=== PATIENT | male | born 1965 | race African-American/Black ===

== ENCOUNTER 2018-01-07 15:48 | Emergency (ER) | payer OTHER, BC ==
[2018-01-07] MEDS: ONDANSETRON 4 MG INJ IV (18:54)
[2018-01-07] MEDS: SOD CHLORIDE 0.9% 1,000 ML IV (18:55)
[2018-01-07] MEDS: morphine 4 MG/ML VIAL IV (18:55)
[2018-01-07 19:14] LABS: ADD MAN DIFF? NO
[2018-01-07 19:21] LABS: BASOPHILS % 0.2 % (0.0-2.0); EOSINOPHILS # 0.7 10^3/ul (0.0-0.5); EOSINOPHILS % 7.3 % (0.0-7.0); HEMATOCRIT 43.7 % (42.0-52.0); HEMOGLOBIN 15.4 g/dl (14.0-18.0); LYMPHOCYTES # 2.4 10^3/ul (0.8-2.9); LYMPHOCYTES % 26.6 % (15.0-51.0); MEAN CORPUSCULAR HEMOGLOBIN 31.1 pg (29.0-33.0); MEAN CORPUSCULAR HGB CONC 35.2 g/dl (32.0-37.0); MEAN CORPUSCULAR VOLUME 88.3 fl (82.0-101.0); MEAN PLATELET VOLUME 8.4 fl (7.4-10.4); MONOCYTE # 0.7 10^3/ul (0.3-0.9); MONOCYTES % 7.7 % (0.0-11.0); NEUTROPHIL # 5.3 10^3/ul (1.6-7.5); NEUTROPHILS % 57.9 % (39.0-77.0); PLATELET COUNT 250 10^3/UL (140-415); RED BLOOD COUNT 4.95 10^6/ul (4.70-6.10); RED CELL DISTRIBUTION WIDTH 13.7 % (11.5-14.5)
[2018-01-07 19:21] LABS: WHITE BLOOD COUNT 9.1 10^3/ul (4.8-10.8)
[2018-01-07 19:42] LABS: ANION GAP 14 (8-16); BLOOD UREA NITROGEN 15 mg/dl (7-20); CALCIUM 9.2 mg/dl (8.4-10.2); CARBON DIOXIDE 26 mmol/L (21-31); CHLORIDE 104 mmol/L (97-110); CREATININE 1.03 mg/dl (0.61-1.24); GLUCOSE 80 mg/dl (70-220); POTASSIUM 3.6 mmol/L (3.5-5.1); SODIUM 140 mmol/L (135-144)
[2018-01-07 19:59] LABS: URINE BLOOD (Dip) POC Negative (NEGATIVE); URINE GLUCOSE (Dip) POC Negative (NEGATIVE); URINE KETONES (Dip) POC Negative (NEGATIVE); URINE LEUKOCYTE EST (Dip) POC Negative (NEGATIVE); URINE NITRITE (Dip) POC Negative (NEGATIVE); URINE TOTAL PROTEIN POC 1+ (NEGATIVE)
== END 2018-01-07 20:37 | disposition home or self-care (01) ==
LOC: FTE 15:48
DX: R51 Headache (principal); I10 Essential (primary) hypertension; F17.210 Nicotine dependence, cigarettes, uncomplicated; R11.0 Nausea
CPT/HCPCS: 36415; 70450; 80048; 81003; 85025; 96361; 96374; 96375; 99285-25

== ENCOUNTER 2018-03-02 13:39 | Inpatient (IN) | payer OTHER, MEDICAID, BC ==
[2018-03-02] MEDS: SOD CHLORIDE 0.9% 1,000 ML IV (14:54)
[2018-03-02] MEDS: KETOROLAC 15 MG INJ IV (14:54)
[2018-03-02 14:59] LABS: ADD MAN DIFF? NO
[2018-03-02 15:00] LABS: BASOPHILS % 0.2 % (0.0-2.0); EOSINOPHILS # 0.5 10^3/ul (0.0-0.5); EOSINOPHILS % 5.2 % (0.0-7.0); HEMATOCRIT 44.6 % (42.0-52.0); HEMOGLOBIN 15.6 g/dl (14.0-18.0); LYMPHOCYTES # 2.5 10^3/ul (0.8-2.9); LYMPHOCYTES % 28.5 % (15.0-51.0); MEAN CORPUSCULAR HEMOGLOBIN 30.2 pg (29.0-33.0); MEAN CORPUSCULAR VOLUME 86.3 fl (82.0-101.0); MEAN PLATELET VOLUME 8.7 fl (7.4-10.4); MONOCYTE # 0.6 10^3/ul (0.3-0.9); MONOCYTES % 6.6 % (0.0-11.0); NEUTROPHIL # 5.3 10^3/ul (1.6-7.5); NEUTROPHILS % 59.4 % (39.0-77.0); PLATELET COUNT 248 10^3/UL (140-415); RED BLOOD COUNT 5.17 10^6/ul (4.70-6.10); RED CELL DISTRIBUTION WIDTH 13.1 % (11.5-14.5)
[2018-03-02 15:00] LABS: WHITE BLOOD COUNT 8.9 10^3/ul (4.8-10.8)
[2018-03-02 15:06] LABS: D-DIMER 450.97 ng/ml (<460)
[2018-03-02 15:08] LABS: ALANINE AMINOTRANSFERASE 28 IU/L (13-69); ALBUMIN 4.4 g/dl (3.3-4.9); ALBUMIN/GLOBULIN RATIO 1.37; ALKALINE PHOSPHATASE 63 IU/L (42-121); ANION GAP 13 (8-16); ASPARTATE AMINO TRANSFERASE 39 IU/L (15-46); BILIRUBIN,INDIRECT 0.4 mg/dl (0-1.1); BILIRUBIN,TOTAL 0.4 mg/dl (0.2-1.3); BLOOD UREA NITROGEN 12 mg/dl (7-20); CALCIUM 9.5 mg/dl (8.4-10.2); CARBON DIOXIDE 29 mmol/L (21-31); CHLORIDE 104 mmol/L (97-110); CREATININE 1.06 mg/dl (0.61-1.24); GLUCOSE 136 mg/dl (70-220); LIPASE 77 U/L (23-300); POTASSIUM 3.5 mmol/L (3.5-5.1); SODIUM 142 mmol/L (135-144); TOTAL PROTEIN 7.6 g/dl (6.1-8.1)
[2018-03-02 15:19] LABS: TROPONIN-I < 0.012 ng/ml (0.000-0.120)
[2018-03-02] MEDS: HYDROmorphONE 2 MG/ML SYG IV (18:41)
[2018-03-02] MEDS ORDERED: ALBUTEROL/IPRATROPIUM (NEB) 3 ML AMP HHN (19:30)
[2018-03-02] MEDS ORDERED: NACL 0.9% 3 ML SYG IV (19:30)
[2018-03-02] MEDS ORDERED: SILDENAFIL 20 MG TAB PO (19:30)
[2018-03-02] MEDS ORDERED: DICLOFENAC (EC) 75 MG TAB PO (19:30)
[2018-03-02] MEDS ORDERED: CYCLOBENZAPRINE 10 MG TAB PO (19:30)
[2018-03-02] MEDS ORDERED: ONDANSETRON 4 MG INJ IV (19:30)
[2018-03-02] MEDS ORDERED: morphine 2 MG INJ IV (19:30)
[2018-03-02] MEDS: MIRTAZAPINE 15 MG TAB PO (20:48)
[2018-03-02] MEDS: QUETIAPINE 100 MG TAB PO (20:48)
[2018-03-02] MEDS: CHOLECALCIFEROL 1,000 UNIT TAB PO (20:49)
[2018-03-02] MEDS: ATORVASTATIN 80 MG TAB PO (20:49)
[2018-03-02] MEDS: METOPROLOL 50 MG TAB PO (20:52)
[2018-03-02] MEDS: GABAPENTIN 300 MG CAP PO (21:57)
[2018-03-02] MEDS: HYDROCODONE/APAP (5/325) TAB PO (21:57)
[2018-03-03] MEDS: LEVOTHYROXINE 50 MCG TAB PO (06:32)
[2018-03-03 07:20] LABS: ADD MAN DIFF? NO
[2018-03-03 07:25] LABS: WHITE BLOOD COUNT 8.7 10^3/ul (4.8-10.8)
[2018-03-03 07:25] LABS: BASOPHILS % 0.2 % (0.0-2.0); EOSINOPHILS # 0.5 10^3/ul (0.0-0.5); EOSINOPHILS % 5.8 % (0.0-7.0); HEMATOCRIT 41.9 % (42.0-52.0); HEMOGLOBIN 14.2 g/dl (14.0-18.0); LYMPHOCYTES # 2.1 10^3/ul (0.8-2.9); LYMPHOCYTES % 23.5 % (15.0-51.0); MEAN CORPUSCULAR HEMOGLOBIN 30.1 pg (29.0-33.0); MEAN CORPUSCULAR HGB CONC 33.9 g/dl (32.0-37.0); MEAN CORPUSCULAR VOLUME 88.8 fl (82.0-101.0); MEAN PLATELET VOLUME 8.8 fl (7.4-10.4); MONOCYTE # 0.6 10^3/ul (0.3-0.9); MONOCYTES % 6.6 % (0.0-11.0); NEUTROPHIL # 5.5 10^3/ul (1.6-7.5); NEUTROPHILS % 63.6 % (39.0-77.0); PLATELET COUNT 220 10^3/UL (140-415); RED BLOOD COUNT 4.72 10^6/ul (4.70-6.10); RED CELL DISTRIBUTION WIDTH 13.4 % (11.5-14.5)
[2018-03-03 07:44] LABS: ANION GAP 9 (8-16); BLOOD UREA NITROGEN 14 mg/dl (7-20); CALCIUM 8.8 mg/dl (8.4-10.2); CARBON DIOXIDE 30 mmol/L (21-31); CHLORIDE 109 mmol/L (97-110); CREATININE 1.03 mg/dl (0.61-1.24); GLUCOSE 109 mg/dl (70-220); MAGNESIUM 2.1 mg/dl (1.7-2.5); PHOSPHORUS 4.4 mg/dl (2.5-4.9); POTASSIUM 3.5 mmol/L (3.5-5.1); SODIUM 144 mmol/L (135-144)
[2018-03-03 07:59] LABS: HEMOGLOBIN A1C 5.9 % (0-5.9)
[2018-03-03] MEDS: METOPROLOL 50 MG TAB PO ×2 (09:00→20:29)
[2018-03-03] MEDS: GABAPENTIN 300 MG CAP PO ×3 (09:15→20:29)
[2018-03-03] MEDS: CHOLECALCIFEROL 1,000 UNIT TAB PO ×2 (09:15→20:29)
[2018-03-03] MEDS: HYDROCHLOROTHIAZIDE 25 MG TAB PO (09:16)
[2018-03-03] MEDS: NIFEdipine (XL) 90 MG TAB PO (09:16)
[2018-03-03] MEDS: LISINOPRIL 20 MG TAB PO (09:16)
[2018-03-03] MEDS: HYDROCODONE/APAP (5/325) TAB PO ×2 (09:53→15:52)
[2018-03-03] MEDS: DOCUSATE SODIUM 100 MG CAP PO (13:54)
[2018-03-03] MEDS: SENNA TAB PO (13:54)
[2018-03-03] MEDS: ACETAMINOPHEN 325 MG TAB PO (14:34)
[2018-03-03] MEDS: ATORVASTATIN 80 MG TAB PO (20:29)
[2018-03-03] MEDS: QUETIAPINE 100 MG TAB PO (20:29)
[2018-03-03] MEDS: MIRTAZAPINE 15 MG TAB PO (20:29)
[2018-03-04] MEDS: LEVOTHYROXINE 50 MCG TAB PO (05:27)
[2018-03-04] MEDS: GABAPENTIN 300 MG CAP PO ×2 (07:46→12:28)
[2018-03-04] MEDS: NIFEdipine (XL) 90 MG TAB PO (07:46)
[2018-03-04] MEDS: CHOLECALCIFEROL 1,000 UNIT TAB PO (07:46)
[2018-03-04] MEDS: HYDROCHLOROTHIAZIDE 25 MG TAB PO (07:46)
[2018-03-04] MEDS: DOCUSATE SODIUM 100 MG CAP PO (07:46)
[2018-03-04] MEDS: LISINOPRIL 20 MG TAB PO (07:46)
[2018-03-04] MEDS: METOPROLOL 50 MG TAB PO (07:47)
[2018-03-04] MEDS: HYDROCODONE/APAP (5/325) TAB PO ×2 (07:47→16:19)
== END 2018-03-04 17:56 | disposition home or self-care (01) | DRG 201 ==
LOC: E/R 13:39 → TEL 16:37
DX: J93.83 Other pneumothorax (principal); I10 Essential (primary) hypertension; E03.9 Hypothyroidism, unspecified; E78.5 Hyperlipidemia, unspecified; F17.210 Nicotine dependence, cigarettes, uncomplicated; J43.9 Emphysema, unspecified
CPT/HCPCS: 36415; 71045; 71250; 80048; 80053; 83036; 83690; 83735; 84100; 84484; 85025; 85378; 93005; 96374; 99285-25

== ENCOUNTER 2018-03-22 14:39 | Inpatient (IN) | payer OTHER, MEDICAID, BC ==
[2018-03-22 16:27] LABS: ADD MAN DIFF? NO
[2018-03-22 16:29] LABS: BASOPHILS % 0.2 % (0.0-2.0); EOSINOPHILS # 0.7 10^3/ul (0.0-0.5); EOSINOPHILS % 5.6 % (0.0-7.0); HEMATOCRIT 42.8 % (42.0-52.0); HEMOGLOBIN 14.9 g/dl (14.0-18.0); LYMPHOCYTES # 3.3 10^3/ul (0.8-2.9); MEAN CORPUSCULAR HEMOGLOBIN 29.8 pg (29.0-33.0); MEAN CORPUSCULAR HGB CONC 34.8 g/dl (32.0-37.0); MEAN CORPUSCULAR VOLUME 85.6 fl (82.0-101.0); MEAN PLATELET VOLUME 8.6 fl (7.4-10.4); MONOCYTE # 1.2 10^3/ul (0.3-0.9); NEUTROPHIL # 7.9 10^3/ul (1.6-7.5); NEUTROPHILS % 59.9 % (39.0-77.0); PLATELET COUNT 244 10^3/UL (140-415); RED CELL DISTRIBUTION WIDTH 13.1 % (11.5-14.5)
[2018-03-22 16:29] LABS: WHITE BLOOD COUNT 13.2 10^3/ul (4.8-10.8)
[2018-03-22 16:55] LABS: ALANINE AMINOTRANSFERASE 46 IU/L (13-69); ALBUMIN 3.8 g/dl (3.3-4.9); ALBUMIN/GLOBULIN RATIO 1.08; ALKALINE PHOSPHATASE 76 IU/L (42-121); ANION GAP 12 (8-16); ASPARTATE AMINO TRANSFERASE 24 IU/L (15-46); BILIRUBIN,INDIRECT 0.5 mg/dl (0-1.1); BILIRUBIN,TOTAL 0.5 mg/dl (0.2-1.3); BLOOD UREA NITROGEN 9 mg/dl (7-20); CALCIUM 9.7 mg/dl (8.4-10.2); CARBON DIOXIDE 31 mmol/L (21-31); CHLORIDE 100 mmol/L (97-110); CREATINE KINASE 106 IU/L (23-200); CREATININE 1.06 mg/dl (0.61-1.24); GLUCOSE 89 mg/dl (70-220); INR 0.92; PROTIME 12.4 Sec (11.9-14.9); SODIUM 140 mmol/L (135-144); TOTAL PROTEIN 7.3 g/dl (6.1-8.1)
[2018-03-22 16:56] LABS: PARTIAL THROMBOPLASTIN TIME 27.6 Sec (23.0-35.0)
[2018-03-22] MEDS: ALBUTEROL 0.083% (NEB) 2.5 MG/3 ML AMP INH (17:06)
[2018-03-22 17:07] LABS: B-TYPE NATRIURETIC PEPTIDE 133 PG/ML (0-125); CK INDEX 0.2; CK-MB < 0.22 ng/ml (0.0-2.4); TROPONIN-I < 0.012 ng/ml (0.000-0.120)
[2018-03-22] MEDS: IPRATROPIUM (NEB) 0.5 MG/2.5 ML AMP INH (17:07)
[2018-03-22 17:16] LABS: AADO2 Arterial 67.2 mmHg (7.0-24.0); Allen Test ACCEPTAB; Arterial Base Excess 4.3 mmol/L (-3.0-3); Arterial Blood Gas Oxygen Sat 99.3 mmHG (95.0-98.0); Arterial COHb 0.6 % (0.0-3.0); Arterial Fraction of Oxyhgb 98.4 % (93.0-99.0); Arterial HCO3 26.9 mmol/L (22.0-26.0); Arterial MetHb 0.3 % (0.0-1.5); Arterial pCO2 34.3 mmhg (35-45); MODE MASK - SIMPLE; Site Right Radial
[2018-03-22] MEDS: ONDANSETRON 4 MG INJ IV (17:36)
[2018-03-22] MEDS: morphine 4 MG/ML VIAL IV (17:36)
[2018-03-22] MEDS ORDERED: ACETAMINOPHEN 325 MG TAB PO ×2 (18:30→19:00)
[2018-03-22] MEDS ORDERED: ONDANSETRON 4 MG INJ IV ×2 (18:30→19:00)
[2018-03-22] MEDS ORDERED: DOCUSATE SODIUM 100 MG CAP PO (19:00)
[2018-03-22] MEDS ORDERED: NACL 0.9% 3 ML SYG IV (19:00)
[2018-03-22] MEDS ORDERED: DICLOFENAC (EC) 75 MG TAB PO (19:00)
[2018-03-22] MEDS ORDERED: ZOLPIDEM 5 MG TAB PO (19:00)
[2018-03-22] MEDS: morphine 2 MG INJ IV (20:34)
[2018-03-22] MEDS: METOPROLOL 50 MG TAB PO (21:00)
[2018-03-22] MEDS: ATORVASTATIN 80 MG TAB PO (22:16)
[2018-03-22] MEDS: MIRTAZAPINE 15 MG TAB PO (22:16)
[2018-03-22] MEDS: QUETIAPINE 100 MG TAB PO (22:16)
[2018-03-22] MEDS: hydrALAzine 20 MG INJ IV (22:17)
[2018-03-22] MEDS: POTASSIUM CHLORIDE (SR) 20 MEQ TAB PO (22:17)
[2018-03-23 06:02] LABS: ADD MAN DIFF? NO
[2018-03-23 06:04] LABS: WHITE BLOOD COUNT 6.6 10^3/ul (4.8-10.8)
[2018-03-23 06:04] LABS: BASOPHILS % 0.2 % (0.0-2.0); EOSINOPHILS # 0.6 10^3/ul (0.0-0.5); EOSINOPHILS % 8.7 % (0.0-7.0); HEMOGLOBIN 13.6 g/dl (14.0-18.0); LYMPHOCYTES % 29.6 % (15.0-51.0); MEAN CORPUSCULAR HEMOGLOBIN 29.8 pg (29.0-33.0); MEAN CORPUSCULAR VOLUME 87.5 fl (82.0-101.0); MEAN PLATELET VOLUME 8.9 fl (7.4-10.4); MONOCYTE # 0.6 10^3/ul (0.3-0.9); MONOCYTES % 8.8 % (0.0-11.0); NEUTROPHIL # 3.5 10^3/ul (1.6-7.5); NEUTROPHILS % 52.5 % (39.0-77.0); PLATELET COUNT 223 10^3/UL (140-415); RED BLOOD COUNT 4.57 10^6/ul (4.70-6.10); RED CELL DISTRIBUTION WIDTH 13.4 % (11.5-14.5)
[2018-03-23] MEDS: LEVOTHYROXINE 50 MCG TAB PO (06:08)
[2018-03-23] MEDS: morphine 2 MG INJ IV ×3 (06:09→20:32)
[2018-03-23 06:27] LABS: ANION GAP 10 (8-16); BLOOD UREA NITROGEN 9 mg/dl (7-20); CARBON DIOXIDE 32 mmol/L (21-31); CHLORIDE 107 mmol/L (97-110); CREATININE 1.03 mg/dl (0.61-1.24); GLUCOSE 110 mg/dl (70-220); MAGNESIUM 2.1 mg/dl (1.7-2.5); PHOSPHORUS 5.1 mg/dl (2.5-4.9); POTASSIUM 3.6 mmol/L (3.5-5.1); SODIUM 145 mmol/L (135-144)
[2018-03-23 07:12] LABS: HEMOGLOBIN A1C 5.8 % (0-5.9)
[2018-03-23] MEDS: HYDROCODONE/APAP (5/325) TAB PO (09:43)
[2018-03-23] MEDS: METOPROLOL 50 MG TAB PO ×2 (09:44→20:31)
[2018-03-23] MEDS: NIFEdipine (XL) 90 MG TAB PO (09:45)
[2018-03-23] MEDS: HYDROCHLOROTHIAZIDE 25 MG TAB PO (09:45)
[2018-03-23] MEDS: LISINOPRIL 20 MG TAB PO (09:45)
[2018-03-23] MEDS: ATORVASTATIN 80 MG TAB PO (20:31)
[2018-03-23] MEDS: MIRTAZAPINE 15 MG TAB PO (20:31)
[2018-03-23] MEDS: QUETIAPINE 100 MG TAB PO (20:31)
[2018-03-24] MEDS: LEVOTHYROXINE 50 MCG TAB PO (06:03)
[2018-03-24] MEDS: NIFEdipine (XL) 90 MG TAB PO (09:01)
[2018-03-24] MEDS: LISINOPRIL 20 MG TAB PO (09:02)
[2018-03-24] MEDS: HYDROCHLOROTHIAZIDE 25 MG TAB PO (09:02)
[2018-03-24] MEDS: METOPROLOL 50 MG TAB PO ×2 (09:04→20:22)
[2018-03-24] MEDS: morphine 2 MG INJ IV ×2 (09:24→17:23)
[2018-03-24] MEDS: ATORVASTATIN 80 MG TAB PO (20:21)
[2018-03-24] MEDS: QUETIAPINE 100 MG TAB PO (20:22)
[2018-03-24] MEDS: MIRTAZAPINE 15 MG TAB PO (20:22)
[2018-03-25] MEDS: LEVOTHYROXINE 50 MCG TAB PO (05:48)
[2018-03-25] MEDS: HYDROCHLOROTHIAZIDE 25 MG TAB PO (08:20)
[2018-03-25] MEDS: NIFEdipine (XL) 90 MG TAB PO (08:20)
[2018-03-25] MEDS: METOPROLOL 50 MG TAB PO (08:20)
[2018-03-25] MEDS: LISINOPRIL 20 MG TAB PO (08:20)
[2018-03-25] MEDS: morphine 2 MG INJ IV (08:24)
== END 2018-03-25 14:55 | disposition home or self-care (01) | DRG 191 ==
LOC: E/R 14:39 → 6WM 18:17
DX: J43.9 Emphysema, unspecified (principal); J93.12 Secondary spontaneous pneumothorax; I10 Essential (primary) hypertension; E03.9 Hypothyroidism, unspecified; Z87.891 Personal history of nicotine dependence; E78.5 Hyperlipidemia, unspecified
CPT/HCPCS: 36600; 71045; 71250; 80048; 80053; 82550; 82553; 82803; 83036; 83735; 83880; 84100; 84484; 85025; 85610; 85730; 87081; 94664; 96374; 96375; 99285-25; G0378

== ENCOUNTER 2018-04-09 14:51 | Emergency (ER) | payer OTHER, MEDICAID, BC ==
[2018-04-09 16:38] LABS: ADD MAN DIFF? NO
[2018-04-09] MEDS: ONDANSETRON 4 MG INJ IV (16:39)
[2018-04-09] MEDS: morphine 4 MG/ML VIAL IV (16:39)
[2018-04-09 16:46] LABS: WHITE BLOOD COUNT 8.9 10^3/ul (4.8-10.8)
[2018-04-09 16:46] LABS: BASOPHILS % 0.2 % (0.0-2.0); EOSINOPHILS # 0.6 10^3/ul (0.0-0.5); EOSINOPHILS % 6.3 % (0.0-7.0); HEMATOCRIT 43.3 % (42.0-52.0); LYMPHOCYTES # 2.4 10^3/ul (0.8-2.9); LYMPHOCYTES % 26.9 % (15.0-51.0); MEAN CORPUSCULAR HEMOGLOBIN 29.8 pg (29.0-33.0); MEAN CORPUSCULAR HGB CONC 34.6 g/dl (32.0-37.0); MEAN CORPUSCULAR VOLUME 85.9 fl (82.0-101.0); MEAN PLATELET VOLUME 8.9 fl (7.4-10.4); MONOCYTE # 0.8 10^3/ul (0.3-0.9); MONOCYTES % 8.4 % (0.0-11.0); NEUTROPHIL # 5.2 10^3/ul (1.6-7.5); PLATELET COUNT 224 10^3/UL (140-415); RED BLOOD COUNT 5.04 10^6/ul (4.70-6.10); RED CELL DISTRIBUTION WIDTH 13.4 % (11.5-14.5)
[2018-04-09 17:04] LABS: INR 0.93; PROTIME 12.5 Sec (11.9-14.9)
[2018-04-09 17:05] LABS: PARTIAL THROMBOPLASTIN TIME 27.5 Sec (23.0-35.0)
[2018-04-09 17:06] LABS: ANION GAP 10 (5-13); BLOOD UREA NITROGEN 13 mg/dl (7-20); CALCIUM 9.4 mg/dl (8.4-10.2); CARBON DIOXIDE 30 mmol/L (21-31); CHLORIDE 103 mmol/L (97-110); CREATININE 1.11 mg/dl (0.61-1.24); Estimated GFR > 60 mL/min (>60); GLUCOSE 85 mg/dl (70-220); POTASSIUM 3.5 mmol/L (3.5-5.1); SODIUM 143 mmol/L (135-144)
[2018-04-09 17:18] LABS: TROPONIN-I < 0.012 ng/ml (0.000-0.120)
[2018-04-09] MEDS ORDERED: KETOROLAC 15 MG INJ IM (18:53)
[2018-04-09] MEDS: KETOROLAC 15 MG INJ IV (18:59)
[2018-04-09 20:44] LABS: TROPONIN-I < 0.012 ng/ml (0.000-0.120)
== END 2018-04-09 22:40 | disposition home or self-care (01) ==
LOC: E/R 14:51
DX: R07.9 Chest pain, unspecified (principal); I10 Essential (primary) hypertension; E03.9 Hypothyroidism, unspecified; J45.909 Unspecified asthma, uncomplicated; Z87.891 Personal history of nicotine dependence
CPT/HCPCS: 71045; 71250; 80048; 84484; 85025; 85610; 85730; 93005; 96374; 96375; 99285-25

== ENCOUNTER 2018-12-24 19:47 | Emergency (ER) | payer OTHER, BC, MEDICAID ==
[2018-12-24] MEDS: HYDROCODONE/APAP (10/325) TAB PO (20:58)
== END 2018-12-24 21:31 | disposition home or self-care (01) ==
LOC: FTE 19:47
DX: M25.561 Pain in right knee (principal); J45.909 Unspecified asthma, uncomplicated; F17.210 Nicotine dependence, cigarettes, uncomplicated
CPT/HCPCS: 99283